=== PATIENT | female | born 1940 | race Caucasian/White ===

== ENCOUNTER → 2020-07-21 18:29 | Outpatient (CLI) | payer MEDICARE ==
[2020-02-10 10:38] VITALS: BMI 17.9
[~2020-07-21 18:29] MED LIST: ACTONEL 35 MG PO; CETIRIZINE HCL5 MG PO; CO Q-10200 MG PO; ELIQUIS2.5 MG PO; HYDROCODON-ACE1 EAC7 PO; KEFLEX500 MG PO; MULTI-DAY VITAM1 TAB PO; PROBIOTIC BLEN1 EACH; PROGESTERONE CREAM; TERRAZYME; VITAMIN C500 M1 PO; VITAMIN D-32000 UNI1 PO; [UNRECOGNIZED DRUG - OTHER]; [UNRECOGNIZED DRUG - OTHER]; [UNRECOGNIZED DRUG - OTHER]; [UNRECOGNIZED DRUG - OTHER]; [UNRECOGNIZED DRUG - OTHER]; [UNRECOGNIZED DRUG - OTHER]; [UNRECOGNIZED DRUG - OTHER]; [UNRECOGNIZED DRUG - OTHER]; [UNRECOGNIZED DRUG - OTHER]; [UNRECOGNIZED DRUG - OTHER]; [UNRECOGNIZED DRUG - OTHER] PO
== END | disposition home or self-care (01) ==
LOC: D.LABREF 18:29
PROVIDERS: ATTEND Orthopaedic Surgery
DX: M17.11 Unilateral primary osteoarthritis, right knee (principal)

== ENCOUNTER 2020-08-23 13:58 | Inpatient (IN) | payer MEDICARE ==
[2020-08-17 12:39] LABS: BASOPHILS 0.9 % (0-2); CALC OSMOLALITY 272 mosm/kg (275-300); CARBON DIOXIDE 27.9 mmol/L (21.0-32.0); CHLORIDE - SERUM 100 mmol/L (98-107); CREATININE - SERUM 0.6 mg/dL (0.6-1.3); EOSINOPHILS 0.9 % (0-7); GLUCOSE 96 mg/dL (74-106); HEMATOCRIT 37.7 % (36.0-48.0); HEMOGLOBIN 12.8 g/dL (12-16); IMMATURE GRANULOCYTES 0.2 % (0-5); LYMPHOCYTE ABS# 1.24 10x3/uL (1.18-3.74); LYMPHOCYTES 21.5 % (15-50); MCV 94.3 fL (80.0-100.0); MEAN PLATELET VOLUME 10.1 fL (7.4-10.4); MONOCYTES 6.4 % (2-11); NEUTROPHIL ABS# 4.06 10x3/uL (1.56-6.13); NEUTROPHILS 70.1 % (40-80); POTASSIUM - SERUM 3.9 mmol/L (3.5-5.1); RDW 12.2 % (11.5-14.5); SODIUM 136 mmol/L (136-145); UREA NITROGEN 16 mg/dL (7-18); WBC 5.8 10x3/uL (4.8-10.8); eGFR NON AFRICAN AMERICAN > 90 mL/min (90-120)
[2020-08-17 12:40] LABS: PLATELET COUNT 253 10x3/uL (130-400)
[2020-08-17 12:56] LABS: BILIRUBIN NEGATIVE (NEGATIVE); KETONE NEGATIVE (NEGATIVE); NITRITE NEGATIVE (NEGATIVE); UROBILINOGEN NORMAL mg/dL (< 2)
[2020-08-17 12:57] LABS: APTT 26.6 SECONDS (22.8-39.4); INR 1.07 (0.85-1.17); PROTIME 12.8 SECONDS (11.6-15.0)
[2020-08-23] VITALS (9 sets, daily range): BP systolic 103–165; BP diastolic 60–108; BMI 18.0; BMI 19.2
[~2020-08-23] VITALS: Ht 162.6 cm; Wt 50.8 kg
[~2020-08-23 13:58] MED LIST changes: +CALCIUM LACTATE PO; +DONEPEZIL HCL5 MG PO; -TERRAZYME; +TERRAZYME PO; +ZINC PO; +[UNRECOGNIZED DRUG - OTHER]; -[UNRECOGNIZED DRUG - OTHER]; -[UNRECOGNIZED DRUG - OTHER]; -[UNRECOGNIZED DRUG - OTHER]; -[UNRECOGNIZED DRUG - OTHER]; -[UNRECOGNIZED DRUG - OTHER]; +[UNRECOGNIZED DRUG - OTHER] PO; +[UNRECOGNIZED DRUG - OTHER] PO; +[UNRECOGNIZED DRUG - OTHER] PO; +[UNRECOGNIZED DRUG - OTHER] PO; +[UNRECOGNIZED DRUG - OTHER] PO; +[UNRECOGNIZED DRUG - OTHER] PO; +[UNRECOGNIZED DRUG - OTHER] PO; +[UNRECOGNIZED DRUG - OTHER] PO; +[UNRECOGNIZED DRUG - OTHER] PO; +[UNRECOGNIZED DRUG - OTHER] PO; +[UNRECOGNIZED DRUG - OTHER] PO
--- NOTE | 2020-08-23 19:30 | NUR ---
PT TALKING ON PHONE AT THIS TIME, NO NEEDS VOICED
--- NOTE | 2020-08-23 20:15 | NUR ---
ASSESSMENT PER FLOW SHEET, VS OBTAINED, IV IN LEFT WRIST STARTING LEAKING AFTER PT GOT UP TO BR, VOIDED WITH NO DIFFICULTY, BACK TO BED, IV REMOVED, TIP INTACT, PRESSURE HELD, BANDAID APPLIED, WILL START NEW IV, PT REPORTS FLATUS, BM TODAY, PT DENIES PAIN AT THIS TIME, BED IN LOW POSITION, SIDE RAILS X 2, CALL LIGHT IN REACH
--- NOTE | 2020-08-23 20:35 | NUR ---
ATTEMPTED IV START IN RIGHT HAND WITH NO SUCCESS, BANDAID APPLIED, WILL HAVE EDWARD WALSH RN, CHARGE NURSE TRY TO START IV
--- NOTE | 2020-08-23 21:00 | NUR ---
EDWARD WALSH RN TO ROOM, IV STARTED IN RIGHT FA, 2ND ATTEMPT, FLUSHED WELL
--- NOTE | 2020-08-23 21:27 | NUR ---
ADM 2100 MEDS AND 1/2NS RESTARTED PER MD ORDERS, SEE EMAR
--- NOTE | 2020-08-23 21:45 | NUR ---
PT REMOVED FROM CPM AT THS TIME, PT REQUESTED AND PROVIDED WARM WASH CLOTH AND H20 TO BRUSH TEETH, PT DENIES FURTHER NEEDS OR PAIN AT THIS TIME
--- NOTE | 2020-08-23 22:39 | NUR ---
PT TRAFFIC ENUMERATOR LIGHT, PT REQUESTED AND THIS RN RUBBED LOTION ON PT'S BACK, PT UP TO BR VIA WALKER WITH ASSISTANCE, VOIDED WITH NO DIFFICULTY, REDNESS NOTED TO BUTTOCK, BUTT PASTE APPLIED, PT BACK TO BED, SCD'S RECONNECTED AND WORKING PROPERLY, PT C/O KNEE PAIN, WILL ADM PAIN MED, BED IN LOW POSITION, SIDE RAILS X 2, CALL LIGHT IN REACH
--- NOTE | 2020-08-23 22:54 | NUR ---
FRESH ICE PACK TO RIGHT KNEE, ADM NORCO PER MD ORDERS, SEE EMAR, VS OBTAINED AT THIS TIME BECAUSE PT REPORTS SHE IS READY TO GO TO SLEEP, PT REMOVES HEARING AIDS, DENIES FURTHER NEEDS
--- NOTE | 2020-08-24 00:11 | NUR ---
PT RESTING WITH EYES CLOSED, RESP QUIET, NO DISTRESS NOTED, LEFT UNDISTURBED AT THIS TIME, FALL PRECAUTIONS IN PLACE
--- NOTE | 2020-08-24 02:25 | NUR ---
PT TRANSFORMER REPAIRER LIGHT, PT UP TO BR VIA WALKER WITH ASSISTANCE, VOIDED WITH NO DIFFICULTY, PT BACK TO BED, SCD'S RECONNECTED AND WORKING PROPERLY, FRESH ICE PACK TO RIGHT KNEE, REQUESTED AND SERVED FRESH H20, PT DENIES FURTHER NEEDS, FALL PRECAUTIONS IN PLACE
[2020-08-24 04:40] VITALS: BP 117/75
--- NOTE | 2020-08-24 04:40 | NUR ---
PT AWAKE, VS OBTAINED, ADM NORCO PER MD ORDERS, SEE EMAR, PT UP TO BR VIA WALKER WITH ASSISTANCE, VOIDED WITH NO DIFFICULTY, PT BACK TO BED, PUMPS CLEARED, PT REQUESTED AND PROVIDED BOX OF TISSUE, SCDS RECONNECTED TO PUMP AND WORKING PROPERLY, PT DENIES FURTHER NEEDS, FALL PRECAUTIONS IN PLACE
--- NOTE | 2020-08-24 05:15 | NUR ---
PT AWAKE, CPM PLACED AT THIS TIME
[2020-08-24 06:02] LABS: BASOPHILS 0.3 % (0-2); EOSINOPHILS 0.1 % (0-7); HEMATOCRIT 31.3 % (36.0-48.0); HEMOGLOBIN 10.6 g/dL (12-16); LYMPHOCYTES 7.4 % (15-50); MCHC 33.7 g/dL (31.0-37.0); MEAN PLATELET VOLUME 8.3 fL (7.4-10.4); MONOCYTES 13.2 % (2-11); PLATELET COUNT 216 10x3/uL (130-400); RBC 3.29 10x6/uL (4.00-5.40); RDW 12.8 % (11.5-14.5); WBC 11.6 10x3/uL (4.8-10.8)
--- NOTE | 2020-08-24 06:15 | NUR ---
DR VELA ON UNIT, REPORT OF PT'S REQUEST FOR MELATONIN, ORDERS RECEIVED
--- NOTE | 2020-08-24 06:26 | OP ---
PATIENT NAME: ALYCE VIDALES MEDICAL RECORD: [id number] :44 LOCATION:D. D.1211 ADMISSION DATE:08/23/20 SURGEON: PAUL VELA DO DATE OF OPERATION: 08/23/2020 PROCEDURE PERFORMED: Right total knee arthroplasty. PREOPERATIVE DIAGNOSIS: Right knee osteoarthritis. POSTOPERATIVE DIAGNOSIS: Right knee osteoarthritis. INDICATIONS: Ms. Vidales is a 80-year-old female who had a left knee done quite sometime ago. She did well with it. 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 She had severe valgus deformity of both knees and she was tired of the right leg kicking the cane she said when she was using a cane to rehab her left knee. This is severely valgus. I informed her of the risks of the surgery including infection, bleeding, fracture, damage to nerves or vessels, need for further surgery, blood clots, failure of implants and even and she signed the consent. SURGEON: Paul Vela DO DESCRIPTION OF PROCEDURE: The patient received a block by anesthesia in the preoperative area, taken to the operative suite, laid in supine position, given 2 gram of Ancef, 80 mg of gentamicin, and a gram of TXA. The right lower extremity was then prepped and draped in sterile fashion. Timeout was performed. Everyone was in agreeance with the correct side, site, patient and procedure. She was sedated and had an LMA placed. I then marked out the skin incision over the anterior knee and covered in Ioban. After I did that, I then used a 10 blade scalpel and made careful dissection down through the skin to the capsule and did a medial parapatellar approach with a fresh 10 blade scalpel and coagulating any bleeding with Aquamantys at this time. I then everted the patella, removed part of the fat pad and milled down the patella after measuring with calipers and sized this to be a 32. I then drilled the holes for the patella at that time. I then flexed the knee up and removed what was left of the ACL and she had a severe atrophy or mild deformity of the lateral femoral condyle and entered the femoral canal with a drill. I used the distal femoral guide to cut the femur. I did take 2 extra off just to get any of the cartilage off of the lateral condyle due to the severity of the deformity. I then exposed the tibia, cut off the lateral side as it was the deepest and most worn and cut a flat cut. I then removed the proximal tibia that I cut menisci with the knee in extension. I then flexed the femur up, sized it to be 10. I used a 4-in-1 cutting block and an nasir wing to ensure there is no notching. I then cut the femur through the 4-in-1 cutting block and exposed the tibia, sized it to be an F, pinned it into place and then put the femur on and then cut for the posterior stabilized knee and notch out. Once that was cut out, I removed it and then trialled a 10 poly then went up to a 14 and had good stability in flexion, mid flexion and extension with varus and valgus stress and was not, and the valgus deformity was straight. I then drilled the lug holes in the femur and reamed and punched the tibia and irrigated those, put extra holes in the tibia while the cement was being mixed. The cement was mixed then put in the tibia and on the implant impacted into place, removed the excess cement. I repeated the process on the femur and then removed the excess cement and then put a trial poly in between and brought the knee into extension and the patella, irrigated OPERATIVE REPORT [id number] ALYCE VIDALES out and cleaned out the holes with a curette, put the cement on the patella and then the implant was squeezed into place, removed excess cement from the tibia and once it was in extension and the femur and then the patella and then put in 10% povidone iodine and 500 mL normal saline solution and let it sit for 3 minutes and irrigated out with a liter of normal saline and then injected the joint cocktail. I then ranged the knee and the 14 poly fit very well. I then removed the trial and put the actual implant in after irrigating one more time and then removing any cement that was in the notch for the PS. After doing that, I inserted the poly in and locked it into place. I then put in Franco, vancomycin, and tobramycin powder in the joint. I then closed the capsule with #1 Vicryl in a [id number]-khspe fashion and Luis Smith, certified surgical it administrative assistant closed over that with #1 Stratafix and then he closed the skin with 2-0 Vicryl in inverted interrupted fashion and placed on the ZipLine. Adaptic, 4 x 4s, ABD, Webril, Randall wrap and MULU hose stocking up to the knee. She was then awakened and taken to recovery in stable condition. Blood loss approximately 300 mL. She was given another gram of TXA also prior to coming to the PACU. TRANSINT:[id number] Voice Confirmation ID: [id number] DOCUMENT ID: [id number] PAUL VELA DO at 0626 CC: [id number] DICTATION DATE: 08/23/20 1355 INTERNIST: 08/23/20 1853 ADM IN [facility] [address] [place] [address]
[2020-08-24 06:30] LABS: ALBUMIN 3.4 g/dL (3.4-5.0); ALKALINE PHOSPHATASE 65 U/L (30-120); ALT (SGPT) 35 U/L (10-68); BILIRUBIN - TOTAL 0.47 mg/dL (0.2-1.3); CALC OSMOLALITY 272 mosm/kg (275-300); CARBON DIOXIDE 26.1 mmol/L (21.0-32.0); CHLORIDE - SERUM 100 mmol/L (98-107); CREATININE - SERUM 0.7 mg/dL (0.6-1.3); GLUCOSE 105 mg/dL (74-106); PROTEIN - SERUM 6.2 g/dL (6.4-8.2); SODIUM 136 mmol/L (136-145); UREA NITROGEN 15 mg/dL (7-18); eGFR NON AFRICAN AMERICAN 86 mL/min (90-120)
--- NOTE | 2020-08-24 07:30 | NUR ---
PT SITTING UP IN BED, CPM IN PLACE TO RIGHT LOWER EXTREMITY. PT REQUEST ASSISTANCE TO BATHROOM. REQUIRES MINIMAL ASSIST WITH WALKER TO AND FROM BATHROOM. REPORTS PAIN 5/10 AT THIS TIME. IV TO RIGHT FOREARM WITH 1/2 NS @ 100ML/HR INFUSING VIA PUMP. SITE WITHOUT REDENESS OR EDEMA. DRESSING TO RIGHT LOWER EXTREMITY C/D/I. DENIES FURTHER NEEDS AT THIS TIME. CL WITHIN REACH. ENCOURAGED TO CALL WITH NEEDS. CONTINUE POC
[2020-08-24 08:31] VITALS: BP 119/51
--- NOTE | 2020-08-24 11:02 | NUR ---
THANK YOU FOR THIS REFERRAL. NOTIFIED Leonie HUTCHISON, WINDER HELPER THAT PATIENT DOES NOT MEET CRITERIA FOR ACUTE REHBILITATION SHE DOES NOT REQUIRE TWENTY FOUR HOUR NURSING CARE. DARYL ACEVES LPN, CLINICAL LIAISON
[2020-08-24 11:33] VITALS: BP 117/49
--- NOTE | 2020-08-24 16:47 | NUR ---
OT NOTE: PT COMPLETED SUPINE TO SIT WITH MIN N-CGA.PT COMPLETED ADL MOB WITH CGA. PT COMPLETED SIT TO STAND WITH CGA-MIN A. PT REQUIRED REST BREAK. PT REQUIRED MIN A FOR LE FOR SIT TO SUPINE. PT DID WELL. [phone] LUCINDA EVANS COTA
--- NOTE | 2020-08-24 16:59 | MORECARE ---
CASE MANAGEMENT DISCHARGE SUMMARY PATIENT: ALYCE VIDALES UNIT: [id number] ADM DATE: 08/23/20 AGE: 80 : 42 SEX: F ROOM/BED: [facility] AUTHOR: ANUSHKA,DOC PHYSICIAN: REFERRING PHYSICIAN: CHRIST VELA DO DATE OF SERVICE: 08/24/20 Case Management Discharge Planning Summary DCP REVIEW SUMMARY ANTICIPATED D/C DATE: EXPECTED LOS : CASE STATUS: DCP Initiated INITIAL REVIEW: 08/23/2020 INITIAL REVIEWER: Adalgisa Aragon FINAL DISCHARGE DISPOSITION: : FINAL REVIEWER: FINAL REVIEW DATE: DCP Focus Questions & Answers QUESTION: ANSWER : PATIENT: ALYCE VIDALES ENCOUNTER: [id number] MEDICAL RECORD#: [id number] ADMISSION DATE: 08/23/2020 DISCHARGE DATE: ATTENDING MD: CHRIST SOSA : AGE: 80 MARITAL STATUS: M DC PLAN ID: [id number] FACILITY: [facility] PRINTED ON: 08/24/20 16:58 CT All edits/amendments must be made on the electronic document DICTATION DATE: 08/24/201657 BRIM ROUNDER: DM 08/24/201657 RPT#: [id number] DC DATE: STATUS: ADM IN [facility] [address] [place] [address] END OF REPORT
--- NOTE | 2020-08-24 20:00 | NUR ---
BED ALARM GOING OFF PT SITTING UP ON SIDE OF BED STATES I WAS TRYING TO GET MY TO HELP ME TO BATHROOM, REMINDED PT THAT SHE IS IN HOSPITAL AND IS NOT HERE AND NEEDS TO USE CALL LIGHT TO CALL FOR NURSE BEFORE GETTING UP, ASSISTED TO BATHROOM AND BACK TO BED WITH WALKER AND MINIMAL ASSIST, PLACED BACK ON CPM, SEE SHIFT ASSESSMENT, CL IN REACH
[2020-08-24 20:14] VITALS: BP 152/60
--- NOTE | 2020-08-24 20:16 | MORECARE ---
CASE MANAGEMENT DISCHARGE SUMMARY PATIENT: ALYCE VIDALES UNIT: [id number] ADM DATE: 08/23/20 AGE: 80 : 42 SEX: F ROOM/BED: D.1211 AUTHOR: ANUSHKA,DOC PHYSICIAN: REFERRING PHYSICIAN: CHRIST VELA DO DATE OF SERVICE: 08/24/20 Case Management Discharge Planning Summary COMMENTS ENTERED DATE: 08/24/20 19:56 CT COMMENT TYPE: Discharge Planning REVIEWER: Adalgisa Aragon PCP: [facility] Pharmacy: [facility] or [facility] CM met with patient at bedside. Patient states that she lives at home with . Patient states that she has 1 step going into her home. Patient states that she has a walker, bedside commode, shower chair and she wishes to go to [facility] for Rehab and KATE signed. Patient states that her insurance only pays for 20 days of CPM use so if she is home before 20 days then she will get it. Patient did sign for 2 nd choice [facility]. Patient states that she will have transportation home. CM faxed referral to [facility] for rehab. CM spoke with Merly Barbour and she stated that she has a bed on hold for another patient but if they are not coming then they will start the auth process on . Merly will call CM and let her know if they will have a bed available. Merly asked CM to get a SURY since patient is on Aricept. CM has SURY completed awaiting physician and patient signatures. CM will continue to follow and assist as needed with discharge planning / needs DCP REVIEW SUMMARY ANTICIPATED D/C DATE: EXPECTED LOS : CASE STATUS: DCP Initiated INITIAL REVIEW: 08/23/2020 INITIAL REVIEWER: Adalgisa Aragon FINAL DISCHARGE DISPOSITION: : FINAL REVIEWER: FINAL REVIEW DATE: DCP Focus Questions & Answers QUESTION: ANSWER : PATIENT: ALYCE VIDALES ENCOUNTER: [id number] MEDICAL RECORD#: [id number] ADMISSION DATE: 08/23/2020 DISCHARGE DATE: ATTENDING MD: CHRIST SOSA : AGE: 80 MARITAL STATUS: M DC PLAN ID: [id number] FACILITY: [facility] PRINTED ON: 08/24/20 20:15 CT All edits/amendments must be made on the electronic document DICTATION DATE: 08/24/202014 SHOT POLISHER: TYSON 08/24/202014 RPT#: [id number] DC DATE: STATUS: ADM IN [facility] [address] [place] [address] END OF REPORT
[2020-08-25 04:06] VITALS: BP 139/66; BP 94/50
[2020-08-25 07:15] VITALS: BP 130/46
[2020-08-25 07:19] LABS: BASOPHILS 0.2 % (0-2); EOSINOPHILS 0.1 % (0-7); HEMATOCRIT 28.9 % (36.0-48.0); HEMOGLOBIN 10.1 g/dL (12-16); LYMPHOCYTES 10.7 % (15-50); MCH 32.8 pg (26.0-34.0); MEAN PLATELET VOLUME 8.2 fL (7.4-10.4); MONOCYTES 16.4 % (2-11); NEUTROPHILS 72.6 % (40-80); PLATELET COUNT 178 10x3/uL (130-400); RBC 3.08 10x6/uL (4.00-5.40); RDW 12.5 % (11.5-14.5)
[2020-08-25 07:24] LABS: WBC 8.5 10x3/uL (4.8-10.8)
[2020-08-25 07:44] LABS: ALBUMIN 3.3 g/dL (3.4-5.0); ALKALINE PHOSPHATASE 65 U/L (30-120); ALT (SGPT) 31 U/L (10-68); BILIRUBIN - TOTAL 0.89 mg/dL (0.2-1.3); CALC OSMOLALITY 259 mosm/kg (275-300); CALCIUM 7.9 mg/dL (8.5-10.1); CARBON DIOXIDE 25.3 mmol/L (21.0-32.0); CHLORIDE - SERUM 94 mmol/L (98-107); GLUCOSE 123 mg/dL (74-106); MAGNESIUM - SERUM 1.9 mg/dL (1.8-2.4); POTASSIUM - SERUM 3.5 mmol/L (3.5-5.1); PROTEIN - SERUM 6.1 g/dL (6.4-8.2); SODIUM 129 mmol/L (136-145); UREA NITROGEN 12 mg/dL (7-18)
[2020-08-25 07:45] LABS: CREATININE - SERUM 0.5 mg/dL (0.6-1.3); eGFR NON AFRICAN AMERICAN > 90 mL/min (90-120)
--- NOTE | 2020-08-25 07:51 | NUR ---
PT AWAKE, ALERT, AND ORIENTED. STATES SHE REMEMBERS ME FROM PREVIOUS SURGERY ON LEFT KNEE IN FEBRUARY. CL IN REACH. NO NEEDS AT THIS TIME. JESSICA
[2020-08-25 11:00] VITALS: BP 131/52
--- NOTE | 2020-08-25 11:24 | MORECARE ---
CASE MANAGEMENT DISCHARGE SUMMARY PATIENT: ALYCE VIDALES UNIT: [id number] ADM DATE: 08/23/20 AGE: 80 : 42 SEX: F ROOM/BED: D.1211 AUTHOR: VERONICA REVELES PHYSICIAN: REFERRING PHYSICIAN: CHRIST VELA DO DATE OF SERVICE: 08/25/20 Case Management Discharge Planning Summary COMMENTS ENTERED DATE: 08/25/20 11:22 CT COMMENT TYPE: Discharge Planning REVIEWER: Princess Forrester SURY FAXED TODAY, WAITING RESPONSE. ENTERED DATE: 08/24/20 19:56 CT COMMENT TYPE: Discharge Planning REVIEWER: Adalgisa Aragon PCP: [facility] Pharmacy: [facility] [facility] or [facility] CM met with patient at bedside. Patient states that she lives at home with . Patient states that she has 1 step going into her home. Patient states that she has a walker, bedside commode, shower chair and she wishes to go to [facility] for Rehab and KATE signed. Patient states that her insurance only pays for 20 days of CPM use so if she is home before 20 days then she will get it. Patient did sign for 2 nd choice [facility]. Patient states that she will have transportation home. CM faxed referral to [facility] for rehab. CM spoke with Merly Sorianoradha and she stated that she has a bed on hold for another patient but if they are not coming then they will start the auth process on . Merly will call CM and let her know if they will have a bed available. Merly asked CM to get a SURY since patient is on Aricept. CM has SURY completed awaiting physician and patient signatures. CM will continue to follow and assist as needed with discharge planning / needs DCP REVIEW SUMMARY ANTICIPATED D/C DATE: EXPECTED LOS : CASE STATUS: DCP Initiated INITIAL REVIEW: 08/23/2020 INITIAL REVIEWER: Adalgisa Aragon FINAL DISCHARGE DISPOSITION: : FINAL REVIEWER: FINAL REVIEW DATE: DCP Focus Questions & Answers QUESTION: ANSWER : PATIENT: ALYCE VIDALES ENCOUNTER: [id number] MEDICAL RECORD#: [id number] ADMISSION DATE: 08/23/2020 DISCHARGE DATE: ATTENDING MD: CHRIST SOSA : AGE: 80 MARITAL STATUS: M DC PLAN ID: [id number] FACILITY: [facility] PRINTED ON: 08/25/20 11:24 CT All edits/amendments must be made on the electronic document DICTATION DATE: 08/25/201123 PNP: TYSON 08/25/20 1124 RPT#: [id number] DC DATE: STATUS: ADM IN [facility] [address] [place] [address] END OF REPORT
--- NOTE | 2020-08-25 12:35 | NUR ---
PT BACK IN BED RESTING. CL IN REACH. WILL GIVE CROSSWORD PUZZLES THAT I PRINTED OFF FOR HER WHEN SHE WAKES. BED ALARM ON. WCTM
--- NOTE | 2020-08-25 12:59 | NUR ---
THANK YOU FOR THIS REFERRAL. CONFIRMED WITH JAMIE Hadley, AIRCRAFT [employer]NCE SYSTEMS MECHANIC, THAT PATIENT HAS ALREADY CHOSEN SNF FACILITY. -DARYL ACEVES LPN, CLINICAL LIAISON
--- NOTE | 2020-08-25 14:41 | NUR ---
OT NOTE: PT SEEN IN PM.. PT DOING MUCH BETTER. BED MOB WITH SPV; AMB IN ROOM WITH WALKER AND CGA; TOILET TRANSFERS WITH CGA; TOILET HYGIENE AND CLOTHIGN MGMT WITH MIN ASSIST FOR BALANCE AND USE OF HAND RAIL FOR SIT TO STAND. SINK HYGIENE WITH SBA; AMB INTO HALLWAY GREATER THAN 75 FT FOR ENDURANCE. BACK IN BED WITH CGA.. PT REPORTING THAT SHE FEELS NAUSEATED AND HAS NOT BEEN ABLE TO EAT MUCH TODAY. NURSING INFORMED. JAMIE SMITH, OTR/L [phone]
--- NOTE | 2020-08-25 14:53 | NUR ---
PT NAUSEOUS. GIVEN ZOFRAN PER EMAR. IN ROOM. ASKED PER CASEKATHARINA WHETHER THEY WOULD CHOOSE ANOTHER REHAB. THEY CHOOSE [facility]. I CALLED AND TOLD RODOLFO. CL IN REACH. JESSICA
[2020-08-25 15:00] VITALS: BP 141/65
--- NOTE | 2020-08-25 15:06 | MORECARE ---
CASE MANAGEMENT DISCHARGE SUMMARY PATIENT: ALYCE VIDALES UNIT: [id number] ADM DATE: 08/23/20 AGE: 80 : 42 SEX: F ROOM/BED: D.1211 AUTHOR: ANUSHKA,DOC PHYSICIAN: REFERRING PHYSICIAN: CHRIST VELA DO DATE OF SERVICE: 08/25/20 Case Management Discharge Planning Summary COMMENTS ENTERED DATE: 08/25/20 14:56 CT COMMENT TYPE: Discharge Planning REVIEWER: Princess Forrester [facility] CALLED AND THEY HAVE NO BED AVAILABILITY. PATIENT WOULD LIKE [facility]OND [facility]ICE. REFERRAL FAXED TO [facility]. ENTERED DATE: 08/25/20 11:22 CT COMMENT TYPE: Discharge Planning REVIEWER: Princess Forrester [facility] FAXED TODAY, WAITING RESPONSE. ENTERED DATE: 08/24/20 19:56 CT COMMENT TYPE: Discharge Planning REVIEWER: Adalgisa Aragon PCP: [facility] CM met with patient at bedside. Patient states that she lives at home with . Patient states that she has 1 step going into her home. Patient states that she has a walker, bedside commode, shower chair and she wishes to go to [facility] for Rehab and KATE signed. Patient states that her insurance only pays for 20 days of CPM use so if she is home before 20 days then she will get it. Patient did sign for 2 nd choice [facility]. Patient states that she will have transportation home. CM faxed referral to [facility] for rehab. RODOLFO spoke with Merly Angle and she stated that she has a bed on hold for another patient but if they are not coming then they will start the auth process on . Merly will call CM and let her know if they will have a bed available. Merly asked CM to get a SURY since patient is on Aricept. CM has SURY completed awaiting physician and patient signatures. CM will continue to follow and assist as needed with discharge planning / needs DCP REVIEW SUMMARY ANTICIPATED D/C DATE: EXPECTED LOS : CASE STATUS: DCP Initiated INITIAL REVIEW: 08/23/2020 INITIAL REVIEWER: Adalgisa Aragon FINAL DISCHARGE DISPOSITION: : FINAL REVIEWER: FINAL REVIEW DATE: DCP Focus Questions & Answers QUESTION: ANSWER : PROVIDER NETWORKING REVIEW DATE: 08/25/2020 SERVICE TYPE: Senior Living Facility REVIEWER: Princess Forrester REVIEW DATE: 08/25/2020 SERVICE TYPE: Senior Living Facility REVIEWER: Princess Forrester PATIENT: ALYCE VIDALES ENCOUNTER: [id number] MEDICAL RECORD#: [id number] ADMISSION DATE: 08/23/2020 DISCHARGE DATE: ATTENDING MD: CHRIST SOSA : AGE: 80 MARITAL STATUS: M DC PLAN ID: [id number] FACILITY: [facility] PRINTED ON: 08/25/20 15:05 CT All edits/amendments must be made on the electronic document DICTATION DATE: 08/25/20 1505 RED LEADER: DM 08/25/20 1505 RPT#: [id number] DC DATE: STATUS: ADM IN [facility] [address] [place] [address] END OF REPORT
--- NOTE | 2020-08-25 17:30 | NUR ---
PT ASSISTED ONTO CPM. TREATED PAIN BEFORE PER EMAR. CL IN REACH. WCTM
[2020-08-25 20:00] VITALS: BP 123/69
--- NOTE | 2020-08-25 20:00 | NUR ---
ASSISTED UP TOP BATHROOM WITH WALKER AND BACK TO BED CPM RESUMED, DENIES PAIN OR NEEDS AT THIS TIME SEE SHIFT ASSESSMENT, CALL LIGHT IN REAC
[2020-08-26 04:30] VITALS: BP 138/79
[2020-08-26] MEDS ORDERED: ELIQUIS2.5 MG PO (06:10)
[2020-08-26] MEDS ORDERED: HYDROCODON-ACE1 EAC7 PO (06:10)
[2020-08-26 06:19] LABS: BASOPHILS 0.4 % (0-2); EOSINOPHILS 0.2 % (0-7); HEMATOCRIT 26.4 % (36.0-48.0); HEMOGLOBIN 9.4 g/dL (12-16); LYMPHOCYTES 11.2 % (15-50); MCH 33.1 pg (26.0-34.0); MCHC 35.6 g/dL (31.0-37.0); MCV 93.2 fL (80.0-100.0); MEAN PLATELET VOLUME 8.2 fL (7.4-10.4); MONOCYTES 17.3 % (2-11); NEUTROPHILS 70.9 % (40-80); PLATELET COUNT 169 10x3/uL (130-400); RBC 2.84 10x6/uL (4.00-5.40); RDW 12.4 % (11.5-14.5); WBC 7.7 10x3/uL (4.8-10.8)
[2020-08-26 06:36] LABS: ALBUMIN 3.1 g/dL (3.4-5.0); ALKALINE PHOSPHATASE 60 U/L (30-120); ALT (SGPT) 28 U/L (10-68); CALC OSMOLALITY 265 mosm/kg (275-300); CALCIUM 8.4 mg/dL (8.5-10.1); CARBON DIOXIDE 26.5 mmol/L (21.0-32.0); CHLORIDE - SERUM 99 mmol/L (98-107); CREATININE - SERUM 0.6 mg/dL (0.6-1.3); GLUCOSE 123 mg/dL (74-106); POTASSIUM - SERUM 3.4 mmol/L (3.5-5.1); PROTEIN - SERUM 6.3 g/dL (6.4-8.2); SODIUM 133 mmol/L (136-145); UREA NITROGEN 9 mg/dL (7-18); eGFR NON AFRICAN AMERICAN > 90 mL/min (90-120)
[2020-08-26 07:22] VITALS: BP 140/52
--- NOTE | 2020-08-26 07:36 | NUR ---
PT EASILY AWAKENED. STATES THAT SHE IS GLAD I AM HERE AND THAT SHE ONLY HAS ONE MORE HOUR TO GO UNTIL SHE IS ABLE TO GET OFF THE CPM. SHIFT ASSESSMENT COMPLETE SEE FLOWSHEET. VS TAKEN AND STABLE. SEE FLOWSHEET. CL IN REACH. BED ALARM ON. NO FURTHER NEEDS AT THIS TIME. WCTM
--- NOTE | 2020-08-26 09:27 | NUR ---
PT ASSISTED WITH BATHROOM AND SHOWER. DRESSING CHANGED. CL IN REACH. THERAPY WORKING WITH HER NOW. JESSICA
[2020-08-26 11:07] VITALS: BP 136/56
--- NOTE | 2020-08-26 13:22 | NUR ---
PT IN ROOM DOING ANKLE SLIDES FOR PT. CL IN REACH. ANOTHER HEATH SPRITE REQUESTED AND RECIEVED. WCTM
--- NOTE | 2020-08-26 14:14 | MORECARE ---
CASE MANAGEMENT DISCHARGE SUMMARY PATIENT: ALYCE VIDALES UNIT: [id number] ADM DATE: 08/23/20 AGE: 80 : 42 SEX: F ROOM/BED: D.1211 AUTHOR: ANUSHKA,DOC PHYSICIAN: REFERRING PHYSICIAN: CHRIST VELA DO DATE OF SERVICE: 08/26/20 Case Management Discharge Planning Summary COMMENTS ENTERED DATE: 08/26/20 14:03 CT COMMENT TYPE: Discharge Planning REVIEWER: Princess PAL IS NOT IN NET WORK WITH PATIENT, FAXED REFERRAL TO [facility] AND CALLED THEM. WAITING CALL BACK. ENTERED DATE: 08/25/20 14:56 CT COMMENT TYPE: Discharge Planning REVIEWER: Princess Forrester [facility]. PATIENT WOULD LIKE [facility]. REFERRAL FAXED TO [facility]. ENTERED DATE: 08/25/20 11:22 CT COMMENT TYPE: Discharge Planning REVIEWER: Princessbenji [place] FAXED TODAY, WAITING RESPONSE. ENTERED DATE: 08/24/20 19:56 CT COMMENT TYPE: Discharge Planning REVIEWER: Adalgisa Aragon PCP: [facility] CM met with patient at bedside. Patient states that she lives at home with . Patient states that she has 1 step going into her home. Patient states that she has a walker, bedside commode, shower chair and she wishes to go to [facility] for Rehab and KATE signed. Patient states that her insurance only pays for 20 days of CPM use so if she is home before 20 days then she will get it. Patient did sign for 2 nd choice [facility]. Patient states that she will have transportation home. CM faxed referral to [facility] for rehab. CM spoke with Merly Barbour and she stated that she has a bed on hold for another patient but if they are not coming then they will start the auth process on . Merly will call CM and let her know if they will have a bed available. Merly asked CM to get a SURY since patient is on Aricept. CM has SURY completed awaiting physician and patient signatures. CM will continue to follow and assist as needed with discharge planning / needs DCP REVIEW SUMMARY ANTICIPATED D/C DATE: EXPECTED LOS : CASE STATUS: DCP Initiated INITIAL REVIEW: 08/23/2020 INITIAL REVIEWER: Adalgisa Aragon FINAL DISCHARGE DISPOSITION: : FINAL REVIEWER: FINAL REVIEW DATE: DCP Focus Questions & Answers QUESTION: ANSWER : PROVIDER NETWORKING REVIEW DATE: 08/25/2020 SERVICE TYPE: Senior Care Facility REVIEWER: Princess Forrester REVIEW DATE: 08/25/2020 SERVICE TYPE: Senior Care Facility REVIEWER: Princess Forrester REVIEW DATE: 08/26/2020 SERVICE TYPE: Senior Care Facility REVIEWER: Princess Forrester PATIENT: ALYCE VIDALES ENCOUNTER: [id number] MEDICAL RECORD#: [id number] ADMISSION DATE: 08/23/2020 DISCHARGE DATE: ATTENDING MD: CHRIST SOSA : AGE: 80 MARITAL STATUS: M DC PLAN ID: [id number] FACILITY: [facility] PRINTED ON: 08/26/20 14:14 CT All edits/amendments must be made on the electronic document DICTATION DATE: 08/26/201413 FINISHING TECHNICIAN: DM 08/26/20 141 RPT#: [id number] DC DATE: STATUS: ADM IN [facility] [address] [place] [address] END OF REPORT
[2020-08-26 15:13] VITALS: BP 134/69
--- NOTE | 2020-08-26 15:20 | NUR ---
OT NOTE: PT REQUIRED SETUP FOR UB BATHING TASKS. PT REQUIRED MAX A FOR LB BATHING TASKS SECONDARY TO SHOWER SIT UP. PT COMPLETED UB DRESSING WITH SETUP. PT REQUIRED MOD A FOR LB DRESSING TO THREAD PANTS. PT COMPLETED HAIR GROOMING WITH SETUP. PT COMPLETED ADL MOB WITH CGA USING A RW. PT LEFT WITH NURSING FOR LE CARE. [phone] LUCINDA EVANS COTA
--- NOTE | 2020-08-26 18:35 | NUR ---
CPM PLACED ON PATIENT.
[2020-08-26 22:09] VITALS: BP 151/75
--- NOTE | 2020-08-27 03:03 | NUR ---
I have reviewed this patient and I concur with the Shift Assessment completed by the Licensed Practical Nurse today this shift.
[2020-08-27 05:07] VITALS: BP 134/56
[2020-08-27 06:12] LABS: BASOPHILS 0.8 % (0-2); EOSINOPHILS 0.9 % (0-7); HEMATOCRIT 26.8 % (36.0-48.0); HEMOGLOBIN 9.4 g/dL (12-16); LYMPHOCYTES 12.5 % (15-50); MCH 33.2 pg (26.0-34.0); MCHC 35.2 g/dL (31.0-37.0); MCV 94.4 fL (80.0-100.0); MONOCYTES 16.5 % (2-11); NEUTROPHILS 69.3 % (40-80); PLATELET COUNT 181 10x3/uL (130-400); RBC 2.83 10x6/uL (4.00-5.40); RDW 12.6 % (11.5-14.5); WBC 7.1 10x3/uL (4.8-10.8)
[2020-08-27 06:32] LABS: ALKALINE PHOSPHATASE 60 U/L (30-120); ALT (SGPT) 29 U/L (10-68); BILIRUBIN - TOTAL 0.95 mg/dL (0.2-1.3); CALC OSMOLALITY 273 mosm/kg (275-300); CALCIUM 8.4 mg/dL (8.5-10.1); CARBON DIOXIDE 26.9 mmol/L (21.0-32.0); CHLORIDE - SERUM 102 mmol/L (98-107); CREATININE - SERUM 0.5 mg/dL (0.6-1.3); GLUCOSE 111 mg/dL (74-106); MAGNESIUM - SERUM 2.1 mg/dL (1.8-2.4); POTASSIUM - SERUM 3.6 mmol/L (3.5-5.1); PROTEIN - SERUM 6.2 g/dL (6.4-8.2); SODIUM 136 mmol/L (136-145); eGFR NON AFRICAN AMERICAN > 90 mL/min (90-120)
[2020-08-27 06:34] LABS: UREA NITROGEN 14 mg/dL (7-18)
[2020-08-27 08:26] VITALS: BP 141/77
--- NOTE | 2020-08-27 09:10 | NUR ---
PT SITTING UP IN CHAIR AT BEDSIDE. DENIES PAIN AT THIS TIME. RESP EVEN AND UNLABORED. SALINE LOC TO RIGHT FOREARM. SITE WITHOUT REDNESS OR EDEMA. DRESSING C/D/I TO RIGHT LOWER EXTREMITY. DENIES FURTHER NEEDS AT THIS TIME. CL WITHIN REACH. ENCOURAGED TO CALL WITH NEEDS. CONTINUE POC
[2020-08-27 11:34] VITALS: BP 140/72
--- NOTE | 2020-08-27 16:49 | NUR ---
AMBULATED 50 FEET WITH STAFF USING RW. CONSTANT REMINDERS FOR GAIT.
[2020-08-27 17:26] VITALS: BP 131/61
--- NOTE | 2020-08-27 19:21 | NUR ---
PATIENT RESTING IN BED WITH NO S/S OF DISTRESS AND DENIES NEEDS AT THIS TIME. BED IN LOWEST POSITION AND CALL LIGHT IN REACH. ENCOURAGED PATIENT TO CALL WITH NEEDS.
[2020-08-27 20:00] VITALS: BP 114/69
--- NOTE | 2020-08-27 20:59 | NUR ---
ADMINISTERED MEDS PER ORDERS. PATIENT TREY WELL. ENCOURAGED PATIENT TO CALL WITH NEEDS.
--- NOTE | 2020-08-27 23:09 | NUR ---
PAGEDenton RAMÍREZ, SUBWAY REPAIR SUPERVISOR, IN REGARDS TO PATIENT REQUEST FOR 5MG MELATONIN.
[2020-08-28 04:00] VITALS: BP 130/59
[2020-08-28 05:32] LABS: BASOPHILS 0.6 % (0-2); EOSINOPHILS 0.8 % (0-7); HEMATOCRIT 25.4 % (36.0-48.0); LYMPHOCYTES 12.9 % (15-50); MCH 33.3 pg (26.0-34.0); MCHC 35.5 g/dL (31.0-37.0); MCV 93.9 fL (80.0-100.0); MEAN PLATELET VOLUME 7.7 fL (7.4-10.4); MONOCYTES 13.6 % (2-11); NEUTROPHILS 72.1 % (40-80); PLATELET COUNT 215 10x3/uL (130-400); RBC 2.71 10x6/uL (4.00-5.40); RDW 12.6 % (11.5-14.5); WBC 7.2 10x3/uL (4.8-10.8)
--- NOTE | 2020-08-28 05:40 | NUR ---
PLACED PATIENT ON CPM MACHINE
[2020-08-28 06:04] LABS: ALBUMIN 2.8 g/dL (3.4-5.0); ALKALINE PHOSPHATASE 53 U/L (30-120); ALT (SGPT) 26 U/L (10-68); BILIRUBIN - TOTAL 0.89 mg/dL (0.2-1.3); CALC OSMOLALITY 271 mosm/kg (275-300); CALCIUM 8.5 mg/dL (8.5-10.1); CARBON DIOXIDE 26.3 mmol/L (21.0-32.0); CHLORIDE - SERUM 101 mmol/L (98-107); CREATININE - SERUM 0.5 mg/dL (0.6-1.3); GLUCOSE 116 mg/dL (74-106); MAGNESIUM - SERUM 2.1 mg/dL (1.8-2.4); POTASSIUM - SERUM 3.8 mmol/L (3.5-5.1); SODIUM 135 mmol/L (136-145); UREA NITROGEN 14 mg/dL (7-18); eGFR NON AFRICAN AMERICAN > 90 mL/min (90-120)
[2020-08-28 09:00] VITALS: BP 157/72
--- NOTE | 2020-08-28 09:30 | NUR ---
PT SITTING UP IN CHAIR AT BEDSIDE. RESP EVEN AND UNLABORED. DENIES PAIN AT THIS TIME. SALINE LOC TO RIGHT FOREARM. SITE WITHOUT REDNESS OR EDEMA. DRESSING TO RIGHT LOWER EXTREMITY W/D/I. AMBULATES WITH MINIMAL ASSIST WITH WALKER AROUND ROOM. ANNELIESE CHAIR ALARM IN PLACE AND ON. DENIES FURTHER NEEDS AT THIS TIME. CL WITHIN REACH. ENCOURAGED TO CALL WITH NEEDS. CONTINUE POC.
[2020-08-28 12:53] VITALS: BP 139/70
[2020-08-28 16:51] VITALS: BP 127/64
[2020-08-28 20:00] VITALS: BP 151/98
--- NOTE | 2020-08-28 20:28 | NUR ---
ADMINISTERED MEDS PER ORDERS. PATIENT TREY WELL. ENCOURAGED TO CALL WITH NEEDS.
[2020-08-29 06:26] LABS: CALC OSMOLALITY 266 mosm/kg (275-300); CALCIUM 8.5 mg/dL (8.5-10.1); CARBON DIOXIDE 27.2 mmol/L (21.0-32.0); CHLORIDE - SERUM 98 mmol/L (98-107); CREATININE - SERUM 0.5 mg/dL (0.6-1.3); GLUCOSE 118 mg/dL (74-106); POTASSIUM - SERUM 3.7 mmol/L (3.5-5.1); SODIUM 131 mmol/L (136-145); UREA NITROGEN 20 mg/dL (7-18); eGFR NON AFRICAN AMERICAN > 90 mL/min (90-120)
[2020-08-29 06:36] LABS: BASOPHILS 0.8 % (0-2); EOSINOPHILS 1.1 % (0-7); LYMPHOCYTES 13.1 % (15-50); MCH 33.6 pg (26.0-34.0); MCHC 35.9 g/dL (31.0-37.0); MCV 93.5 fL (80.0-100.0); MEAN PLATELET VOLUME 7.7 fL (7.4-10.4); MONOCYTES 14.6 % (2-11); NEUTROPHILS 70.4 % (40-80); RBC 2.67 10x6/uL (4.00-5.40); RDW 12.5 % (11.5-14.5); WBC 6.9 10x3/uL (4.8-10.8)
[2020-08-29 07:00] LABS: PLATELET COUNT 264 10x3/uL (130-400)
[2020-08-29 09:22] VITALS: BP 135/81
--- NOTE | 2020-08-29 09:56 | MORECARE ---
CASE MANAGEMENT DISCHARGE SUMMARY PATIENT: ALYCE VIDALES UNIT: [id number] ADM DATE: 08/23/20 AGE: 80 : 42 SEX: F ROOM/BED: D.2207 AUTHOR: VERONICA REVELES PHYSICIAN: REFERRING PHYSICIAN: CHRIST VELA DO DATE OF SERVICE: 08/29/20 Case Management Discharge Planning Summary COMMENTS ENTERED DATE: 08/29/20 9:50 CT COMMENT TYPE: Discharge Planning REVIEWER: Stella Gillette [facility] ABOUT [facility] THAT WAS SENT LAST WEEK, WAITING TO HEAR BACK FROM ELIJAH ENTERED DATE: 08/26/20 14:03 CT COMMENT TYPE: Discharge Planning REVIEWER: Princess PAL IS NOT IN NET WORK WITH PATIENT, [facility] AND CALLED THEM. WAITING CALL BACK. ENTERED DATE: 08/25/20 14:56 CT COMMENT TYPE: Discharge Planning REVIEWER: Princess [facility] AND THEY HAVE NO BED AVAILABILITY. PATIENT WOULD LIKE [facility]. REFERRAL FAXED TO [facility]. ENTERED DATE: 08/25/20 11:22 CT COMMENT TYPE: Discharge Planning REVIEWER: Princess GA FAXED TODAY, WAITING RESPONSE. ENTERED DATE: 08/24/20 19:56 CT COMMENT TYPE: Discharge Planning REVIEWER: Adalgisa Aragon PCP: [facility] Salinas Pharmacy: [facility] [address] [facility] CM met with patient at bedside. Patient states that she lives at home with . Patient states that she has 1 step going into her home. Patient states that she has a walker, bedside commode, shower chair and she wishes to go to [facility] for Rehab and KATE signed. Patient states that her insurance only pays for 20 days of CPM use so if she is home before 20 days then she will get it. Patient did sign for [facility]. Patient states that she will have transportation home. CM faxed referral to [facility] for rehab. CM spoke with Merly Barbour and she stated that she has a bed on hold for another patient but if they are not coming then they will start the auth process on . Merly will call CM and let her know if they will have a bed available. Merly asked CM to get a SURY since patient is on Aricept. CM has SURY completed awaiting physician and patient signatures. CM will continue to follow and assist as needed with discharge planning / needs DCP REVIEW SUMMARY ANTICIPATED D/C DATE: EXPECTED LOS : CASE STATUS: DCP Initiated INITIAL REVIEW: 08/23/2020 INITIAL REVIEWER: Adalgisa Aragon FINAL DISCHARGE DISPOSITION: : FINAL REVIEWER: FINAL REVIEW DATE: DCP Focus Questions & Answers QUESTION: ANSWER : PROVIDER NETWORKING REVIEW DATE: 08/25/2020 SERVICE TYPE: [facility]dc Facility REVIEWER: Princess Forrester REVIEW DATE: 08/25/2020 SERVICE TYPE: [facility]dc Facility REVIEWER: Princess Forrester REVIEW DATE: 08/26/2020 SERVICE TYPE: [facility]dc Facility REVIEWER: Princess Forrester PATIENT: ALYCE VIDALES ENCOUNTER: [id number] MEDICAL RECORD#: [id number] ADMISSION DATE: 08/23/2020 DISCHARGE DATE: ATTENDING MD: CHRIST SOSA : AGE: 80 MARITAL STATUS: M DC PLAN ID: [id number] FACILITY: [facility] PRINTED ON: 08/29/20 9:55 CT All edits/amendments must be made on the electronic document DICTATION DATE: 08/29/20954 PRIMARY CARE SALES REPRESENTATIVE: TYSON 08/29/20954 RPT#: [id number] DC DATE: STATUS: ADM IN [facility] [address] [place] [address] END OF REPORT
[2020-08-29 11:35] VITALS: BP 143/73
--- NOTE | 2020-08-29 12:57 | MORECARE ---
CASE MANAGEMENT DISCHARGE SUMMARY PATIENT: ALYCE VIDALES UNIT: [id number] ADM DATE: 08/23/20 AGE: 80 : 42 SEX: F ROOM/BED: D.2207 AUTHOR: VERONICA REVELES PHYSICIAN: REFERRING PHYSICIAN: CHRIST VELA DO DATE OF SERVICE: 08/29/20 Case Management Discharge Planning Summary COMMENTS ENTERED DATE: 08/29/20 9:50 CT COMMENT TYPE: Discharge Planning REVIEWER: Stella Gillette [facility] ABOUT REFERRAL THAT WAS SENT LAST WEEK, WAITING TO HEAR BACK FROM ELIJAH ENTERED DATE: 08/26/20 14:03 CT COMMENT TYPE: Discharge Planning REVIEWER: Princess PAL IS NOT IN NET WORK WITH PATIENT, [facility] AND CALLED THEM. WAITING CALL BACK. ENTERED DATE: 08/25/20 14:56 CT COMMENT TYPE: Discharge Planning REVIEWER: Princess [facility] CALL[facility] AND THEY HAVE NO BED AVAILABILITY. PATIENT WOULD LIKE [facility]. REFERRAL FAXED TO [facility]. ENTERED DATE: 08/25/20 11:22 CT COMMENT TYPE: Discharge Planning REVIEWER: Princess GA FAXED TODAY, WAITING RESPONSE. ENTERED DATE: 08/24/20 19:56 CT COMMENT TYPE: Discharge Planning REVIEWER: Adalgisa Aragon PCP: [facility] Pharmacy: [facility] [address] [facility] CM met with patient at bedside. Patient states that she lives at home with . Patient states that she has 1 step going into her home. Patient states that she has a walker, bedside commode, shower chair and she wishes to go to [facility] for Rehab and KATE signed. Patient states that her insurance only pays for 20 days of CPM use so if she is home before 20 days then she will get it. Patient did sign for [facility]. Patient states that she will have transportation home. CM faxed referral to [facility] for rehab. CM spoke with Merly Barbour and she stated that she has a bed on hold for another patient but if they are not coming then they will start the auth process on . Merly will call CM and let her know if they will have a bed available. Merly asked CM to get a SURY since patient is on Aricept. CM has SURY completed awaiting physician and patient signatures. CM will continue to follow and assist as needed with discharge planning / needs DCP REVIEW SUMMARY ANTICIPATED D/C DATE: EXPECTED LOS : CASE STATUS: DCP Initiated INITIAL REVIEW: 08/23/2020 INITIAL REVIEWER: Adalgisa Aragon FINAL DISCHARGE DISPOSITION: : FINAL REVIEWER: FINAL REVIEW DATE: DCP Focus Questions & Answers QUESTION: ANSWER : PROVIDER NETWORKING REVIEW DATE: 08/25/2020 SERVICE TYPE: [facility] Facility REVIEWER: Princess Forrester REVIEW DATE: 08/25/2020 SERVICE TYPE: [facility]iary Facility REVIEWER: Princess Forrester REVIEW DATE: 08/26/2020 SERVICE TYPE: Penitentiary Facility REVIEWER: Princess Forrester PATIENT: ALYCE VIDALES ENCOUNTER: [id number] MEDICAL RECORD#: [id number] ADMISSION DATE: 08/23/2020 DISCHARGE DATE: ATTENDING MD: CHRIST SOSA : AGE: 80 MARITAL STATUS: M DC PLAN ID: [id number] FACILITY: [facility] PRINTED ON: 08/29/20 12:57 CT All edits/amendments must be made on the electronic document DICTATION DATE: 08/29/20 1257 RIGGING WORKER: TYSON 08/29/20 1257 RPT#: [id number] DC DATE: STATUS: ADM IN [facility] [address] [place] [id number] END OF REPORT
[2020-08-29 13:44] VITALS: Ht 162.6 cm; Wt 50.8 kg
--- NOTE | 2020-08-29 13:54 | MORECARE ---
CASE MANAGEMENT DISCHARGE SUMMARY PATIENT: ALYCE VIDALES UNIT: [id number] ADM DATE: 08/23/20 AGE: 80 : 42 SEX: F ROOM/BED: D.2207 AUTHOR: ANUSHKA,DOC PHYSICIAN: REFERRING PHYSICIAN: CHRIST VELA DO DATE OF SERVICE: 08/29/20 Case Management Discharge Planning Summary COMMENTS ENTERED DATE: 08/29/20 13:48 CT COMMENT TYPE: Discharge Planning REVIEWER: Stella Gillette [facility] the [facility]. She is fine with $83.67, she has had her covid vaccine 05/19 & 06/03 and her oils and herbal medications she will provide if needed I have let Vidhi know to start the process for auth ENTERED DATE: 08/29/20 9:50 CT COMMENT TYPE: Discharge Planning REVIEWER: Stella Gillette [facility] THAT WAS SENT LAST WEEK, WAITING TO HEAR BACK FROM VIDHI ENTERED DATE: 08/26/20 14:03 CT COMMENT TYPE: Discharge Planning REVIEWER: Princess PAL IS NOT IN NET WORK WITH PATIENT, FAXED [facility]ERR[facility] TO [facility] AND CALLED THEM. WAITING CALL BACK. ENTERED DATE: 08/25/20 14:56 CT COMMENT TYPE: Discharge Planning REVIEWER: Princess [facility] CALL[facility] AND THEY HAVE NO BED AVAILABILITY. PATIENT WOULD LIKE [facility]. REFERRAL FAXED TO [facility]. ENTERED DATE: 08/25/20 11:22 CT COMMENT TYPE: Discharge Planning REVIEWER: Princess GA FAXED TODAY, WAITING RESPONSE. ENTERED DATE: 08/24/20 19:56 CT COMMENT TYPE: Discharge Planning REVIEWER: Adalgisa Aragon PCP: [facility]inas Pharmacy: [facility] [address] [facility] CM met with patient at bedside. Patient states that she lives at home with . Patient states that she has 1 step going into her home. Patient states that she has a walker, bedside commode, shower chair and she wishes to go to [facility] for Rehab and KATE signed. Patient states that her insurance only pays for 20 days of CPM use so if she is home before 20 days then she will get it. Patient did sign for [facility]. Patient states that she will have transportation home. CM faxed referral to [facility] for rehab. CM spoke with Merly Barbour and she stated that she has a bed on hold for another patient but if they are not coming then they will start the auth process on . Merly will call CM and let her know if they will have a bed available. Merly asked CM to get a SURY since patient is on Aricept. CM has SURY completed awaiting physician and patient signatures. CM will continue to follow and assist as needed with discharge planning / needs DCP REVIEW SUMMARY ANTICIPATED D/C DATE: EXPECTED LOS : CASE STATUS: DCP Initiated INITIAL REVIEW: 08/23/2020 INITIAL REVIEWER: Adalgisa Aragon FINAL DISCHARGE DISPOSITION: : FINAL REVIEWER: FINAL REVIEW DATE: DCP Focus Questions & Answers QUESTION: ANSWER : PROVIDER NETWORKING REVIEW DATE: 08/25/2020 SERVICE TYPE: [facility]-Way Facility REVIEWER: Princess Forrester REVIEW DATE: 08/25/2020 SERVICE TYPE: [facility]-Way Facility REVIEWER: Princess Forrester REVIEW DATE: 08/26/2020 SERVICE TYPE: [facility]-Way Facility REVIEWER: Princess Forrester PATIENT: ALYCE VIDALES ENCOUNTER: [id number] MEDICAL RECORD#: [id number] ADMISSION DATE: 08/23/2020 DISCHARGE DATE: ATTENDING MD: CHRIST SOSA : AGE: 80 MARITAL STATUS: M DC PLAN ID: [id number] FACILITY: [facility] PRINTED ON: 08/29/20 13:53 CT All edits/amendments must be made on the electronic document DICTATION DATE: 08/29/20 135 FILTER PULP WASHER: TYSON 08/29/20 1353 RPT#: [id number] DC DATE: STATUS: ADM IN [facility] [address] [place] [address] END OF REPORT
--- NOTE | 2020-08-29 16:32 | NUR ---
OT NOTE: PT DID WELL. PT COMPLETED SIT TO STAND WITH CGA. PT COMPLETED ADL MOBILITY WITH SBA-CGA USING RW. PT COMPLETED YFN ROBE WITH SETUP. PT COMPLETED HAIR GROOMING WITH SETUP. CL IN REACH. [phone] LUCINDA EVANS COTA
--- NOTE | 2020-08-29 16:58 | NUR ---
I have reviewed this patient and I concur with the Shift Assessment completed by the Licensed Practical Nurse today this shift.
[2020-08-29 17:28] VITALS: BP 145/81
[2020-08-29 20:00] VITALS: BP 129/53
[2020-08-30 04:00] VITALS: BP 130/61
[2020-08-30 05:58] LABS: BASOPHILS 1.1 % (0-2); EOSINOPHILS 1.4 % (0-7); HEMOGLOBIN 9.1 g/dL (12-16); LYMPHOCYTES 12.6 % (15-50); MCH 32.7 pg (26.0-34.0); MCHC 34.9 g/dL (31.0-37.0); MCV 93.4 fL (80.0-100.0); MEAN PLATELET VOLUME 7.4 fL (7.4-10.4); MONOCYTES 14.9 % (2-11); RBC 2.78 10x6/uL (4.00-5.40); RDW 12.6 % (11.5-14.5); WBC 6.6 10x3/uL (4.8-10.8)
--- NOTE | 2020-08-30 06:00 | NUR ---
I have reviewed this patient and I concur with the Shift Assessment completed by the Licensed Practical Nurse today this shift.
[2020-08-30 06:21] LABS: PLATELET COUNT 320 10x3/uL (130-400)
[2020-08-30 06:26] LABS: CALC OSMOLALITY 276 mosm/kg (275-300); CALCIUM 8.4 mg/dL (8.5-10.1); CARBON DIOXIDE 27.8 mmol/L (21.0-32.0); CHLORIDE - SERUM 101 mmol/L (98-107); CREATININE - SERUM 0.5 mg/dL (0.6-1.3); GLUCOSE 110 mg/dL (74-106); POTASSIUM - SERUM 3.9 mmol/L (3.5-5.1); SODIUM 137 mmol/L (136-145); UREA NITROGEN 18 mg/dL (7-18); eGFR NON AFRICAN AMERICAN > 90 mL/min (90-120)
--- NOTE | 2020-08-30 07:15 | NUR ---
REC'D IN BED AWAKE AND ALERT. RESP EVEN AND UNLABORED WITH NO DISTRESS NOTED CAN EXPRESS NEEDS AND WANTS. ASSESSMENT COMPLETED. C/L IN REACH AT BEDSIDE.
[2020-08-30 08:38] VITALS: BP 144/67
--- NOTE | 2020-08-30 10:33 | MORECARE ---
CASE MANAGEMENT DISCHARGE SUMMARY PATIENT: ALYCE VIDALES UNIT: [id number] ADM DATE: 08/23/20 AGE: 80 : 42 SEX: F ROOM/BED: D.2207 AUTHOR: ANUSHKA,DOC PHYSICIAN: REFERRING PHYSICIAN: CHRIST VELA DO DATE OF SERVICE: 08/30/20 Case Management Discharge Planning Summary COMMENTS ENTERED DATE: 08/29/20 13:48 CT COMMENT TYPE: Discharge Planning REVIEWER: Stella Gillette Spoke with the patient about [facility]. She is fine with $83.67, she has had her covid vaccine 05/19 & 06/03 and her oils and herbal medications she will provide if needed I have let Vidhi know to start the process for auth ENTERED DATE: 08/29/20 9:50 CT COMMENT TYPE: Discharge Planning REVIEWER: Stella Gillette [facility] THAT WAS SENT LAST WEEK, WAITING TO HEAR BACK FROM VIDHI ENTERED DATE: 08/26/20 14:03 CT COMMENT TYPE: Discharge Planning REVIEWER: Princess PAL IS NOT IN NET WORK WITH PATIENT, FAXED REFERRAL TO [facility] AND CALLED THEM. WAITING CALL BACK. ENTERED DATE: 08/25/20 14:56 CT COMMENT TYPE: Discharge Planning REVIEWER: Prnicess [facility] CALL[facility] AND THEY HAVE NO BED AVAILABILITY. PATIENT WOULD LIKE [facility]. REFERRAL FAXED TO [facility]. ENTERED DATE: 08/25/20 11:22 CT COMMENT TYPE: Discharge Planning REVIEWER: Princess GA FAXED TODAY, WAITING RESPONSE. ENTERED DATE: 08/24/20 19:56 CT COMMENT TYPE: Discharge Planning REVIEWER: Adalgisa Aragon PCP: [facility]inas Pharmacy: [facility] [address] [facility] CM met with patient at bedside. Patient states that she lives at home with . Patient states that she has 1 step going into her home. Patient states that she has a walker, bedside commode, shower chair and she wishes to go to [facility] for Rehab and KATE signed. Patient states that her insurance only pays for 20 days of CPM use so if she is home before 20 days then she will get it. Patient did sign for [facility] nd choice [facility]. Patient states that she will have transportation home. CM faxed referral to [facility] for rehab. CM spoke with Merly Barbour and she stated that she has a bed on hold for another patient but if they are not coming then they will start the auth process on . Merly will call CM and let her know if they will have a bed available. Merly asked CM to get a SURY since patient is on Aricept. CM has SURY completed awaiting physician and patient signatures. CM will continue to follow and assist as needed with discharge planning / needs DCP REVIEW SUMMARY ANTICIPATED D/C DATE: EXPECTED LOS : CASE STATUS: DCP Initiated INITIAL REVIEW: 08/23/2020 INITIAL REVIEWER: Adalgisa Aragon FINAL DISCHARGE DISPOSITION: : FINAL REVIEWER: FINAL REVIEW DATE: DCP Focus Questions & Answers QUESTION: ANSWER : PROVIDER NETWORKING REVIEW DATE: 08/25/2020 SERVICE TYPE: Group Home Facility REVIEWER: Princess Forrester REVIEW DATE: 08/25/2020 SERVICE TYPE: Group Home Facility REVIEWER: Princess Forrester REVIEW DATE: 08/26/2020 SERVICE TYPE: Group Home Facility REVIEWER: Princess Forrester PATIENT: ALYCE VIDALES ENCOUNTER: [id number] MEDICAL RECORD#: [id number] ADMISSION DATE: 08/23/2020 DISCHARGE DATE: ATTENDING MD: CHRIST SOSA : AGE: 80 MARITAL STATUS: M DC PLAN ID: [id number] FACILITY: [facility] PRINTED ON: 08/30/20 10:33 CT All edits/amendments must be made on the electronic document DICTATION DATE: 08/30/201031 ADVERTISING AGENT: TYSON 08/30/20 1032 RPT#: [id number] DC DATE: STATUS: ADM IN [facility] [address] [place] [address] END OF REPORT
--- NOTE | 2020-08-30 11:28 | NUR ---
I have reviewed this patient and I concur with the Shift Assessment completed by the Licensed Practical Nurse today this shift.
[2020-08-30 11:45] VITALS: BP 145/65
--- NOTE | 2020-08-30 17:01 | NUR ---
OT NOTE: PT COMPLETED ADL MOBILITY WITH RW REQUIRED SBA. PT COMPLETED ORAL HYGIENE AT SINK LEVEL WITH SPV. PT COMPLETED HAND HYGIENE AT SINK LEVEL WITH SPV. PT COMPLETED TOILETING TASKS WITH SPV. [phone] THANK YOU,DEVI PORRAS
[2020-08-30 17:03] VITALS: BP 145/59
--- NOTE | 2020-08-30 18:57 | NUR ---
REC'D IN BED AWAKE AND ALERT. RESP EVEN AND UNLABORED WITH NO DISTRESS NOTED CAN EXPRESS NEEDS AND WANTS. ASSESSMENT COMPLETED. C/L IN REACH AT BEDSIDE.
[2020-08-30 20:00] VITALS: BP 137/68
[2020-08-31 04:00] VITALS: BP 140/67
[2020-08-31 06:19] LABS: BASOPHILS 1.1 % (0-2); EOSINOPHILS 1.4 % (0-7); HEMATOCRIT 28.7 % (36.0-48.0); HEMOGLOBIN 10.1 g/dL (12-16); MCH 33.3 pg (26.0-34.0); MCHC 35.2 g/dL (31.0-37.0); MCV 94.6 fL (80.0-100.0); NEUTROPHILS 71.5 % (40-80); RBC 3.04 10x6/uL (4.00-5.40); RDW 12.4 % (11.5-14.5); WBC 6.7 10x3/uL (4.8-10.8)
[2020-08-31 06:37] LABS: CALC OSMOLALITY 267 mosm/kg (275-300); CALCIUM 8.8 mg/dL (8.5-10.1); CHLORIDE - SERUM 99 mmol/L (98-107); CREATININE - SERUM 0.5 mg/dL (0.6-1.3); GLUCOSE 116 mg/dL (74-106); POTASSIUM - SERUM 3.6 mmol/L (3.5-5.1); SODIUM 133 mmol/L (136-145); UREA NITROGEN 15 mg/dL (7-18); eGFR NON AFRICAN AMERICAN > 90 mL/min (90-120)
[2020-08-31 06:44] LABS: PLATELET COUNT 389 10x3/uL (130-400)
--- NOTE | 2020-08-31 07:15 | NUR ---
REC'D IN BED AWAKE AND ALERT. RESP EVEN AND UNLABORED WITH NO DISTRESS NOTED. CAN EXPRESS NEEDS AND WANTS. NO C/O NOTED OR VOICED. ASSESSMENT COMPLETED. C/L IN REACH AT BEDSIDE.
[2020-08-31 08:23] VITALS: BP 144/64
--- NOTE | 2020-08-31 11:33 | NUR ---
PATIENT IS UP IN CHAIR. SHE IS WITHOUT DISTRESS.HOPES TO DC HOME TODAY.
[2020-08-31 12:09] VITALS: BP 134/63
--- NOTE | 2020-08-31 14:04 | MORECARE ---
CASE MANAGEMENT DISCHARGE SUMMARY PATIENT: ALYCE VIDALES UNIT: [id number] ADM DATE: 08/23/20 AGE: 80 : 42 SEX: F ROOM/BED: D.2207 AUTHOR: ANUSHKA,DOC PHYSICIAN: REFERRING PHYSICIAN: CHRIST VELA DO DATE OF SERVICE: 08/31/20 Case Management Discharge Planning Summary COMMENTS ENTERED DATE: 08/31/20 14:03 CT COMMENT TYPE: Discharge Planning REVIEWER: Stella Leta kate signed and IMM also signed, CM to follow and assist as needed ENTERED DATE: 08/31/20 13:56 CT COMMENT TYPE: Discharge Planning REVIEWER: Stella Farooqken Patient would now like to go home. now with home health. She needs her CMP machine and she stated it would come from [place]. I [facility] and spoke with Daniel and he stated that they would deliver the CPM to her home. Her friend Maggie Arshad will be her regional company truck driver home today. She has her walker in her room. I have spoken with Geovanny with [facility] and sent the referral over. ENTERED DATE: 08/29/20 13:48 CT COMMENT TYPE: Discharge Planning REVIEWER: Stella Gillette Spoke with the patient about [facility]. She is fine with $83.67, she has had her covid vaccine 05/19 & 06/03 and her oils and herbal medications she will provide if needed I have let Elijah know to start the process for auth ENTERED DATE: 08/29/20 9:50 CT COMMENT TYPE: Discharge Planning REVIEWER: Stella Gillette [facility] THAT WAS SENT LAST WEEK, WAITING TO HEAR BACK FROM ELIJAH ENTERED DATE: 08/26/20 14:03 CT COMMENT TYPE: Discharge Planning REVIEWER: Princess Forrester [facility] IS NOT IN NET WORK WITH PATIENT, FAXED [facility]AL [facility] AND CALLED THEM. WAITING CALL BACK. ENTERED DATE: 08/25/20 14:56 CT COMMENT TYPE: Discharge Planning REVIEWER: Princess Forrester [facility] CALLED AND THEY HAVE NO BED AVAILABILITY. PATIENT WOULD LIKE [facility]. [facility]FERRAL [facility] TO [facility]. ENTERED DATE: 08/25/20 11:22 CT COMMENT TYPE: Discharge Planning REVIEWER: Princessbenji GA FAXED TODAY, WAITING RESPONSE. ENTERED DATE: 08/24/20 19:56 CT COMMENT TYPE: Discharge Planning REVIEWER: Adalgisa Aragon PCP: [facility]inas Pharmacy: [facility] [address] [facility] CM met with patient at bedside. Patient states that she lives at home with . Patient states that she has 1 step going into her home. Patient states that she has a walker, bedside commode, shower chair and she wishes to go to [facility] for Rehab and KATE signed. Patient states that her insurance only pays for 20 days of CPM use so if she is home before 20 days then she will get it. Patient did sign for [facility] nd choice [facility]. Patient states that she will have transportation home. CM faxed referral to [facility] for rehab. CM spoke with Merly Barbour and she stated that she has a bed on hold for another patient but if they are not coming then they will start the auth process on . Merly will call CM and let her know if they will have a bed available. Merly asked CM to get a SURY since patient is on Aricept. CM has SURY completed awaiting physician and patient signatures. CM will continue to follow and assist as needed with discharge planning / needs DCP REVIEW SUMMARY ANTICIPATED D/C DATE: EXPECTED LOS : CASE STATUS: DCP Initiated INITIAL REVIEW: 08/23/2020 INITIAL REVIEWER: Adalgisa Aragon FINAL DISCHARGE DISPOSITION: 06 : Discharged/Trans to Home Under Care of [facility] in Anticipation of Skilled Care FINAL REVIEWER: FINAL REVIEW DATE: [facility] Focus Questions & Answers QUESTION: ANSWER : PROVIDER NETWORKING REVIEW DATE: 08/25/2020 SERVICE TYPE: [facility]dc Facility REVIEWER: Princess Forrester REVIEW DATE: 08/25/2020 SERVICE TYPE: [facility]dc Facility REVIEWER: Princess Forrester REVIEW DATE: 08/26/2020 SERVICE TYPE: [facility]dc Facility REVIEWER: Princess Forrester PATIENT: ALYCE VIDALES ENCOUNTER: [id number] MEDICAL RECORD#: [id number] ADMISSION DATE: 08/23/2020 DISCHARGE DATE: ATTENDING MD: CHRIST SOSA : AGE: 80 MARITAL STATUS: M DC PLAN ID: [id number] FACILITY: [facility] PRINTED ON: 08/31/20 14:04 CT All edits/amendments must be made on the electronic document DICTATION DATE: 08/31/201403 AUTOMATIC PROFILE SHAPER OPERATOR: DM 08/31/20 140 RPT#: [id number] DC DATE: STATUS: ADM IN [facility] [address] [place] [address] END OF REPORT
--- NOTE | 2020-08-31 16:47 | NUR ---
DC HOME AT THIS TIME WITH ALL PERSONAL BELONGING. VOICES UNDERSTANDING OF DC ORDERS. INFORMED PT THAT IF SHE FORGETS ANYTHING TO PLEASE FEEL FREE TO GIVEN US A CALL BACK HERE ON MED-SURG. DRESSING WAS CHANGED BEFORE DEPARTURE ALONG WITH IV. STABLE CONDITION UPON DEPARTURE.
--- NOTE | 2020-08-31 21:29 | NUR ---
OT NOTE: PT COMPLETED ADL MOBILITY WITH SBA USING RW. PT COMPLETED LB DRESSING ACTIVITIES WITH MAX-TOTAL FOR SOCKS. PT STATES SHE DOES NOT FIND SOCK AID USEFUL. PT COMPLETED SIT TO STAND WITH SBA. PT COMPLETED FUNCTIONAL EXERCISES FOR INCREASED I WITH DAILY TASKS. [id number] LUCINDA EVANS COTA
--- NOTE | 2020-09-01 10:33 | MORECARE ---
CASE MANAGEMENT DISCHARGE SUMMARY PATIENT: ALYCE VIDALES UNIT: [id number] ADM DATE: 08/23/20 AGE: 80 : 44 SEX: F ROOM/BED: D.2207 AUTHOR: ANUSHKA,DOC PHYSICIAN: REFERRING PHYSICIAN: CHRIST VELA DO DATE OF SERVICE: 09/01/20 Case Management Discharge Planning Summary COMMENTS ENTERED DATE: 08/31/20 14:03 CT COMMENT TYPE: Discharge Planning REVIEWER: Stella Leta kate signed and IMM also signed, CM to follow and assist as needed ENTERED DATE: 08/31/20 13:56 CT COMMENT TYPE: Discharge Planning REVIEWER: Stella Farooqken Patient would now like to go home. now with home health. She needs her CMP machine and she stated it would come from [employer]. I called [facility] and spoke with Daniel and he stated that they would deliver the CPM to her home. Her friend Maggie Arshad will be her lead driver home today. She has her walker in her room. I have spoken with Geovanny with [facility] and sent the referral over. ENTERED DATE: 08/29/20 13:48 CT COMMENT TYPE: Discharge Planning REVIEWER: Stella Gillette Spoke with the patient about [facility]. She is fine with $83.67, she has had her covid vaccine 05/19 & 06/03 and her oils and herbal medications she will provide if needed I have let Elijah know to start the process for auth ENTERED DATE: 08/29/20 9:50 CT COMMENT TYPE: Discharge Planning REVIEWER: Stella Gillette [facility]ACH[facility] OUT [facility] ABOUT [facility] THAT WAS SENT LAST WEEK, WAITING TO HEAR BACK FROM ELIJAH ENTERED DATE: 08/26/20 14:03 CT COMMENT TYPE: Discharge Planning REVIEWER: Princess Forrester KAE IS NOT IN NET WORK WITH PATIENT, FAXED REFERRAL TO [facility] AND CALLED THEM. WAITING CALL BACK. ENTERED DATE: 08/25/20 14:56 CT COMMENT TYPE: Discharge Planning REVIEWER: Princess Forrester [facility] CALLED AND THEY HAVE NO BED AVAILABILITY. PATIENT WOULD LIKE [facility] SECOND CHOICE. REFERRAL FAXED TO [facility]. ENTERED DATE: 08/25/20 11:22 CT COMMENT TYPE: Discharge Planning REVIEWER: Princessbenji [place] FAXED TODAY, WAITING RESPONSE. ENTERED DATE: 08/24/20 19:56 CT COMMENT TYPE: Discharge Planning REVIEWER: Adalgisa Aragon PCP: [facility] Pharmacy: [facility] [address] [facility] CM met with patient at bedside. Patient states that she lives at home with . Patient states that she has 1 step going into her home. Patient states that she has a walker, bedside commode, shower chair and she wishes to go to [facility] for Rehab and KATE signed. Patient states that her insurance only pays for 20 days of CPM use so if she is home before 20 days then she will get it. Patient did sign for 2 nd choice [facility]. Patient states that she will have transportation home. CM faxed referral to [facility] for rehab. CM spoke with Merly Barbour and she stated that she has a bed on hold for another patient but if they are not coming then they will start the auth process on . Merly will call CM and let her know if they will have a bed available. Merly asked CM to get a SURY since patient is on Aricept. CM has SURY completed awaiting physician and patient signatures. CM will continue to follow and assist as needed with discharge planning / needs DCP REVIEW SUMMARY ANTICIPATED D/C DATE: EXPECTED LOS : 0 CASE STATUS: DCP Complete INITIAL REVIEW: 08/23/2020 INITIAL REVIEWER: Adalgisa Aragon FINAL DISCHARGE DISPOSITION: 06 : Discharged/Trans to Home Under Care of [facility] in Anticipation of Skilled Care FINAL REVIEWER: Stella Gillette FINAL REVIEW DATE: 09/01/2020 DCP [facility] Questions & Answers QUESTION: ANSWER : PROVIDER NETWORKING REVIEW DATE: 08/25/2020 SERVICE TYPE: [facility] REVIEWER: Princess Forrester REVIEW DATE: 08/25/2020 SERVICE TYPE: [facility] REVIEWER: Princess Forrester REVIEW DATE: 08/26/2020 SERVICE TYPE: [facility] REVIEWER: Princess Forrester PATIENT: ALYCE VIDALES ENCOUNTER: [id number] MEDICAL RECORD#: [id number] ADMISSION DATE: 08/23/2020 DISCHARGE DATE: 08/31/2020 ATTENDING MD: CHRIST SOSA : AGE: 80 MARITAL STATUS: M DC PLAN ID: [id number] FACILITY: [facility] PRINTED ON: 09/01/20 10:33 CT All edits/amendments must be made on the electronic document DICTATION DATE: 09/01/20 1033 VP OF [employer]: DM 09/01/20 1033 RPT#: [id number] DC DATE:08/31/20 STATUS: DIS IN [facility] [address] [place] [address] END OF REPORT
--- NOTE | 2020-09-01 12:12 | MORECARE ---
CASE MANAGEMENT DISCHARGE SUMMARY PATIENT: ALYCE VIDALES UNIT: [id number] ADM DATE: 08/23/20 AGE: 80 : 42 SEX: F ROOM/BED: D.2207 AUTHOR: ANUSHKA,DOC PHYSICIAN: REFERRING PHYSICIAN: CHRIST VELA DO DATE OF SERVICE: 09/01/20 Case Management Discharge Planning Summary COMMENTS ENTERED DATE: 08/31/20 14:03 CT COMMENT TYPE: Discharge Planning REVIEWER: Stella Leta kate signed and IMM also signed, CM to follow and assist as needed ENTERED DATE: 08/31/20 13:56 CT COMMENT TYPE: Discharge Planning REVIEWER: Stella Farooqken Patient would now like to go home. now with home health. She needs her CMP machine and she stated it would come from [employer]. I called [facility] and spoke with Daniel and he stated that they would deliver the CPM to her home. Her friend Maggie Arshad will be her furniture mover driver home today. She has her walker in her room. I have spoken with Geovanny with [facility] and sent the referral over. ENTERED DATE: 08/29/20 13:48 CT COMMENT TYPE: Discharge Planning REVIEWER: Stella Gillette Spoke with the patient about [facility]. She is fine with $83.67, she has had her covid vaccine 05/19 & 06/03 and her oils and herbal medications she will provide if needed I have let Elijah know to start the process for auth ENTERED DATE: 08/29/20 9:50 CT COMMENT TYPE: Discharge Planning REVIEWER: Stella Gillette [facility]ACH[facility] ABOUT [facility]FERRAL THAT WAS SENT LAST WEEK, WAITING TO HEAR BACK FROM ELIJAH ENTERED DATE: 08/26/20 14:03 CT COMMENT TYPE: Discharge Planning REVIEWER: Princess Forrester KAE IS NOT IN NET WORK WITH PATIENT, FAXED REFERRAL TO [facility] AND CALLED THEM. WAITING CALL BACK. ENTERED DATE: 08/25/20 14:56 CT COMMENT TYPE: Discharge Planning REVIEWER: Princess Forrester [facility] CALLED AND THEY HAVE NO BED AVAILABILITY. PATIENT WOULD LIKE [facility] SECOND CHOICE. REFERRAL FAXED TO [facility]. ENTERED DATE: 08/25/20 11:22 CT COMMENT TYPE: Discharge Planning REVIEWER: Princessbenji [place] FAXED TODAY, WAITING RESPONSE. ENTERED DATE: 08/24/20 19:56 CT COMMENT TYPE: Discharge Planning REVIEWER: Adalgisa Aragon PCP: [facility] Pharmacy: [facility] [address] [facility] CM met with patient at bedside. Patient states that she lives at home with . Patient states that she has 1 step going into her home. Patient states that she has a walker, bedside commode, shower chair and she wishes to go to [facility] for Rehab and KATE signed. Patient states that her insurance only pays for 20 days of CPM use so if she is home before 20 days then she will get it. Patient did sign for 2 nd choice [facility]. Patient states that she will have transportation home. CM faxed referral to [facility] for rehab. CM spoke with Merly Barbour and she stated that she has a bed on hold for another patient but if they are not coming then they will start the auth process on . Merly will call CM and let her know if they will have a bed available. Merly asked CM to get a SURY since patient is on Aricept. CM has SURY completed awaiting physician and patient signatures. CM will continue to follow and assist as needed with discharge planning / needs DCP REVIEW SUMMARY ANTICIPATED D/C DATE: EXPECTED LOS : 0 CASE STATUS: DCP Complete INITIAL REVIEW: 08/23/2020 INITIAL REVIEWER: Adalgisa Aragon FINAL DISCHARGE DISPOSITION: 06 : Discharged/Trans to Home Under Care of [facility] Service in Anticipation of Skilled Care FINAL REVIEWER: Stella Gillette FINAL REVIEW DATE: 09/01/2020 DCP [facility] Questions & Answers QUESTION: ANSWER : PROVIDER NETWORKING REVIEW DATE: 08/25/2020 [facility]ICE [facility] REVIEWER: Princess Forrester REVIEW DATE: 08/25/2020 SERVICE TYPE: [facility] REVIEWER: Princess Forrester REVIEW DATE: 08/26/2020 SERVICE TYPE: [facility] REVIEWER: Princess Forrester PATIENT: ALYCE VIDALES ENCOUNTER: [id number] MEDICAL RECORD#: [id number] ADMISSION DATE: 08/23/2020 DISCHARGE DATE: 08/31/2020 ATTENDING MD: CHRIST SOSA : AGE: 80 MARITAL STATUS: M DC PLAN ID: [id number] FACILITY: [facility] PRINTED ON: 09/01/20 12:12 CT All edits/amendments must be made on the electronic document DICTATION DATE: 09/01/20 121 STNA: DM 09/01/20 121 RPT#: [id number] DC DATE:08/31/20 STATUS: DIS IN [facility] [address] [place] [address] END OF REPORT
== END 2020-08-31 16:50 | disposition home health service (06) | DRG 470 ==
LOC: D.OPS 13:58 → D.M3 14:03 → D.MS 14:03
PROVIDERS: Emergency Medicine; Family Medicine; ADMIT Orthopaedic Surgery; ATTEND Orthopaedic Surgery
PROC: 0SRC0J9 Replacement of Right Knee Joint with Synthetic Substitute, Cemented, Open Approach (ICD-10-PCS; principal; 2020-08-23 10:30)
DX: M17.11 Unilateral primary osteoarthritis, right knee (principal); M81.0 Age-related osteoporosis without current pathological fracture